=== PATIENT | female | born 1975 | race Caucasian/White ===

== ENCOUNTER 2016-05-17 23:15 | Inpatient (IN) | payer MEDICAID ==
[2016-05-17] MEDS ORDERED: NORMAL SALINE 1000 ML 2,000 ML IV PRN (23:25)
--- NOTE | 2016-05-17 23:31 | ER Document Report ---
ED GI/ - General Stated Complaint: AT HOME DELIVERY,VAGINAL BLEEDING Time seen by provider: 23:31 Mode of Arrival: Medic Information source: Patient - HPI Patient complains to provider of: Abdominal pain, Vaginal bleeding Onset: Just prior to arrival Timing/Duration: Sudden Quality of pain: Achy, Cramping Severity at maximum: Severe Severity in ED: Severe Location: Pelvis, Vaginal Vaginal bleeding (Compared to normal period): Heavier, Passing clots Exacerbated by: Denies Relieved by: Denies Notes: 05/18/16 00:13 Patient is a 41-year-old female who presents to the emergency room via EMS after home delivery of what she believes to be a full-term , patient did not receive any care, EMS reports they were called out to the home earlier today as patient was having active contractions with abdominal pain, when they were called back this time it was related to delivery of an unresponsive, cyanotic, with no pulse, on evaluation they noted a large amount of blood loss from the mother, and a possible partial placental delivery , mother reports this is her sixth and she has 5 living children at home, mother does report that her water broke yesterday evening around 5 PM - Related Data Allergies/Adverse Reactions: No Known Allergies Allergy (Unverified 05/18/16 00:03) Past Medical History - General Information source: Patient, Emergency Med Personnel - Social History Smoking Status: Unknown if Ever Smoked Family History: Reviewed & Not Pertinent Review of Systems - Review of Systems Constitutional: No symptoms reported EENT: No symptoms reported Cardiovascular: No symptoms reported Respiratory: No symptoms reported Gastrointestinal: See HPI Genitourinary: No symptoms reported Female Genitourinary: See HPI Musculoskeletal: No symptoms reported Skin: No symptoms reported Hematologic/Lymphatic: No symptoms reported Neurological/Psychological: No symptoms reported -: Yes All other systems reviewed and negative Physical Exam - Vital signs Vitals: Pulse Ox 88 L 05/17/16 23:17 Interpretation: Hypotensive, Tachycardic - General General appearance: Alert In distress: Mild - HEENT Head: Normocephalic, Atraumatic Eyes: Normal Conjunctiva: Normal Extraocular movements intact: Yes Eyelashes: Normal Pupils: PERRL Mucous membranes: Moist - Respiratory Respiratory status: No respiratory distress Chest status: Nontender Breath sounds: Normal Chest palpation: Normal - Cardiovascular Rhythm: Regular, Tachycardia - Abdominal Tenderness: Tender - Tender to palpate in the suprapubic region, uterine fundus is palpable, firm, tender - Genitourinary Vaginal bleeding: Moderate - Back Back: Normal - Extremities General upper extremity: Normal inspection General lower extremity: Normal inspection - Neurological Neuro grossly intact: Yes Cognition: Normal Orientation: AAOx4 Maryann Coma Scale Eye Opening: Spontaneous Maryann Coma Scale Verbal: Oriented [place] Coma Scale Motor: Obeys Commands Maryann Coma Scale Total: 15 - Psychological Associated symptoms: Normal affect - Skin Skin Temperature: Cool Skin Moisture: Dry Skin Color: Pale Course - Re-evaluation Re-evalutation: 05/18/16 00:18 Patient arrived slightly hypotensive and tachycardic, otherwise alert, IV fluids were immediately administered, patient was placed on a monitor and stabilized in the emergency room and transferred to L&D for further evaluation and treatment by the [employer] WORKER, Dr. Brock Garcia, who accepts patient for admission - Vital Signs Vital signs: Temp Pulse Resp BP Pulse Ox 31 H 131/82 H 100 05/17/16 23:28 05/17/16 23:28 05/17/16 23:22 - Laboratory Result Diagrams: 05/17/16 23:25 05/17/16 23:25 Laboratory results interpreted by me: 05/17/16 05/17/16 23:25 23:25 WBC 20.9 H RBC 3.04 L Hgb 8.3 L Hct 26.4 L MCHC 31.6 L RDW 18.1 H Seg Neuts % (Manual) 81 H Lymphocytes % (Manual) 10 L Abs Neuts (Manual) 17.8 H Sodium 135.8 L Chloride 110 H Carbon Dioxide 11 L Glucose 201 H Calcium 7.6 L Total Protein 4.7 L Albumin 2.4 L Critical Care Note - Critical Care Note Total time excluding time spent on procedures (mins): 40 Comments: Patient arrives via EMS with hemorrhage, hypotensive, tachycardic, pale Discharge - Discharge Clinical Impression: Hypotension syndrome in mother, hemorrhage Qualifiers: hemorrhage type: unspecified Qualified Code(s): O72.1 - Other immediate hemorrhage Condition: Serious Disposition: ADMITTED INPATIENT Admitting Provider: [facility] Admitted: Labor and Delivery
[2016-05-17] MEDS ORDERED: OXYTOCIN/NORMAL SALINE 20 UNIT/1,000 ML RTUINJ ONE (23:44)
[2016-05-17 23:55] LABS: HEMATOCRIT 26.4 % (36.0-47.0); HEMOGLOBIN 8.3 g/dL (12.0-15.5); HGB HCT DIFFERENCE -1.5; MEAN CORPUSCULAR HEMOGLOBIN 27.3 pg (27.0-33.4); MEAN CORPUSCULAR HGB CONC 31.6 g/dL (32.0-36.0); MEAN CORPUSCULAR VOLUME 87 fl (80-97); RED BLOOD COUNT 3.04 10^6/uL (3.72-5.28); RED CELL DISTRIBUTION WIDTH 18.1 % (11.5-14.0); WHITE BLOOD COUNT 20.9 10^3/uL (4.0-10.5)
[2016-05-17] MEDS ORDERED: ZOLPIDEM TARTRATE 5 MG TABLET PO PRN (23:55)
[2016-05-17] MEDS ORDERED: PROMETHAZINE HCL INJ 25 MG/1 ML VIAL IV PRN (23:55)
[2016-05-17] MEDS ORDERED: OXYTOCIN/NORMAL SALINE 1,000 ML IV PRN (23:55)
[2016-05-17] MEDS ORDERED: DIBUCAINE 1% OINTMENT 28 GM TP PRN (23:55)
[2016-05-17] MEDS ORDERED: ACETAMINOPHEN WITH CODEINE #3 TABLET PO PRN ×2 (23:55)
[2016-05-17] MEDS ORDERED: DIPHENHYDRAMINE HCL 25 MG CAPSULE PO PRN (23:55)
[2016-05-17] MEDS ORDERED: DIPH/PERTUSS(ACELL)/TETANUS VAC/PF 0.5 ML SYR (>=10YO) IM PRN (23:55)
[2016-05-17] MEDS ORDERED: GLYCERIN/WITCH HAZEL LEAF 1 EACH MED..PAD TP PRN (23:55)
[2016-05-17] MEDS ORDERED: MAGNESIUM HYDROXIDE SUSP 30 ML UDCUP PO PRN (23:55)
[2016-05-17] MEDS ORDERED: ACETAMINOPHEN 650 MG SUPP.RECT PR PRN (23:55)
[2016-05-17] MEDS ORDERED: NA PHOS,M-B/NA PHOS,DI-BA (ADULT) 133 ML ENEMA PR PRN (23:55)
[2016-05-17] MEDS ORDERED: PROMETHAZINE HCL 25 MG SUPP.RECT PR PRN (23:55)
[2016-05-17] MEDS ORDERED: MEASLES,MUMPS&RUBELLA VACC/PF 0.5 ML VIAL SUBCUT PRN (23:55)
[2016-05-17] MEDS ORDERED: PSEUDOEPHEDRINE HCL 30 MG TABLET PO PRN (23:55)
[2016-05-17] MEDS ORDERED: PROMETHAZINE HCL 25 MG TABLET PO PRN (23:55)
[2016-05-17] MEDS ORDERED: BENZOCAINE/MENTHOL AEROSOL SPRAY 56 ML TOP PRN (23:55)
[2016-05-17 23:58] LABS: ALANINE AMINOTRANSFERASE 22 U/L (9-52); ALBUMIN 2.4 g/dL (3.5-5.0); ALKALINE PHOSPHATASE 99 U/L (38-126); ANION GAP 15 (5-19); ASPARTATE AMINO TRANSFERASE 19 U/L (14-36); BILIRUBIN,DIRECT 0.1 mg/dL (0.0-0.4); BILIRUBIN,TOTAL 0.5 mg/dL (0.2-1.3); BLOOD UREA NITROGEN 10 mg/dL (7-20); CALCIUM 7.6 mg/dL (8.4-10.2); CARBON DIOXIDE 11 mmol/L (22-30); CHLORIDE 110 mmol/L (98-107); CREATININE RESULT 0.69 mg/dL (0.52-1.25); GLUCOSE 201 mg/dL (75-110); POTASSIUM 4.3 mmol/L (3.6-5.0); SODIUM 135.8 mmol/L (137-145); TOTAL PROTEIN 4.7 g/dL (6.3-8.2)
[2016-05-18] MEDS ORDERED: ACETAMINOPHEN WITH CODEINE #3 TABLET ONE (00:06)
[2016-05-18 00:07] VITALS: BP 131/82
[2016-05-18] MEDS ORDERED: IBUPROFEN 800 MG TABLET ONE (00:07)
[2016-05-18 00:10] LABS: BAND NEUTROPHILS % (MANUAL) 4 % (3-5); BASOPHILS % (MANUAL) 0 % (0-2); EOSINOPHILS % (MANUAL) 0 % (0-6); LYMPHOCYTES % (MANUAL) 10 % (13-45); TOTAL CELLS COUNTED 100
[2016-05-18 00:11] LABS: ANISOCYTOSIS 1+; OVALOCYTES SLIGHT; POLYCHROMASIA SLIGHT; TOXIC GRANULATION SLIGHT
[2016-05-18 00:51] LABS: ADD HIVPANEL? NO; HIV (1 AND 2) ANTIBODY NEGATIVE (NEGATIVE)
[2016-05-18] MEDS ORDERED: IBUPROFEN 800 MG TABLET PO SCH (06:00)
[2016-05-18] MEDS ORDERED: FERROUS SULFATE 325 MG TABLET PO SCH (10:00)
[2016-05-18] MEDS ORDERED: FAMOTIDINE 20 MG TABLET PO SCH (10:00)
[2016-05-18] MEDS ORDERED: SENNOSIDES/DOCUSATE 8.6-50 MG 1 EACH TABLET PO SCH (10:00)
[2016-05-18] MEDS ORDERED: DOCUSATE SODIUM 100 MG CAPSULE PO SCH (10:00)
[2016-05-18] MEDS ORDERED: PRENATAL VITAMIN W-O CA NO5/FE FUMARATE/FA CAPSULE PO SCH (10:00)
--- NOTE | 2016-06-11 16:58 | DISCHARGE SUMMARY E ---
Discharge Summary NAME: JOSE ALBERTO MONROE : 1975 AGE: 41Y ADMITTED: 05/17/2016 DISCHARGED: 05/18/2016 Discharge Diagnosis: Vaginal delivery HOSPITAL COURSE: She had delivered at home with a planned home . Both the baby and placenta delivered at home but the baby delivered stillbirth. This prompted their visit to the ER by squad. She had a small peroneal laceration that she did not want repaired. I recommended she stay until morning to ensure she would not have any hemorrhage or fevers. She declined to stay. Initially she had agreed but her came in and they left AMA, against medical advice. DICTATING PHYSICIAN: MARIA GUADALUPE HUSSEIN M.D. [id number] PHY#: [id number] ID: [id number] JOB#: [id number] ACCT: [id number] cc:MARIA GUADALUPE HUSSEIN M.D. > MTDD
== END 2016-05-18 03:28 | disposition left against medical advice (07) | DRG 774 ==
LOC: ER 23:15 → LR 23:40
PROVIDERS: ADMIT Obstetrics & Gynecology; ATTEND Obstetrics & Gynecology
DX: O72.1 Other immediate postpartum hemorrhage (principal); O13.5 Gestational [pregnancy-induced] hypertension without significant proteinuria, complicating the puerperium
CPT/HCPCS: 36415; 80053; 83036; 85025; 86592; 86701; 86850; 86900; 86901; 94760; 96365; 99291; J2590

== ENCOUNTER 2019-05-05 21:45 | Inpatient (IN) | payer MEDICAID ==
[2019-05-05] MEDS ORDERED: OXYTOCIN 10 UNIT/ML VIAL ONE ×2 (22:11→22:15)
[2019-05-05] MEDS ORDERED: MISOPROSTOL 0.2 MG TABLET ONE (22:12)
[2019-05-05] MEDS ORDERED: OXYTOCIN/NORMAL SALINE 20 UNIT/1,000 ML RTUINJ ONE (22:12)
[2019-05-05] MEDS ORDERED: LIDOCAINE 1% INJ-PF (10 MG/ML) 30 ML SDV ONE (22:12)
[2019-05-05] MEDS ORDERED: PENICILLIN G-K 5 MILLION UNIT VIAL ONE (22:24)
[2019-05-05 22:30] LABS: T.VAGINALIS (WET MOUNT) NO TRICHOMONAS SEEN; WBCS (WET MOUNT) NO WBCS SEEN; YEAST (WET MOUNT) NO YEAST SEEN
[2019-05-05] MEDS ORDERED: RINGERS SOLUTION,LACTATED 1,000 ML IV ONE (22:44)
[2019-05-05] MEDS ORDERED: PENICILLIN G POTASSIUM 5,000,000 UNIT in DEXTROSE 5%-WATER 100 ML IV ONE (22:44)
[2019-05-05 22:58] LABS: ABSOLUTE LYMPHOCYTES (AUTO) 0.8 10^3/uL (0.5-4.7); ABSOLUTE MONOCYTES (AUTO) 0.4 10^3/uL (0.1-1.4); ABSOLUTE NEUT (AUTO) 7.9 10^3/uL (1.7-8.2); BASOPHILS % (AUTO) 0.2 % (0-2); EOSINOPHILS % (AUTO) 0.2 % (0-6); HEMOGLOBIN 11.9 g/dL (12.0-15.5); MEAN CORPUSCULAR HEMOGLOBIN 30.3 pg (27.0-33.4); MEAN CORPUSCULAR HGB CONC 35.1 g/dL (32.0-36.0); MEAN CORPUSCULAR VOLUME 86 fl (80-97); MONOCYTES % (AUTO) 4.7 % (3-13); PLATELET COUNT 190 10^3/uL (150-450); RED BLOOD COUNT 3.95 10^6/uL (3.72-5.28); RED CELL DISTRIBUTION WIDTH 15.6 % (11.5-14.0); SEGMENTED NEUTROPHILS % (AUTO) 85.9 % (42-78); TOTAL CELLS COUNTED % (AUTO) 100 %; WHITE BLOOD COUNT 9.2 10^3/uL (4.0-10.5)
[2019-05-05 23:01] LABS: APPEARANCE,URINE CLEAR; BILIRUBIN,URINE NEGATIVE (NEGATIVE); COLOR,URINE YELLOW; GLUCOSE, URINE NEGATIVE (NEGATIVE); KETONES,URINE TRACE mg/dL (NEGATIVE); LEUKOCYTE ESTERASE,URINE TRACE (NEGATIVE); NITRITE,URINE NEGATIVE (NEGATIVE); PROTEIN,URINE NEGATIVE (NEGATIVE); URINE SPECIFIC GRAVITY 1.024
--- NOTE | 2019-05-05 23:07 | Admission Physical ---
Datetime Report Generated by CPN: 05/05/2019 23:06 CURRENT ADMISSION Chief Complaint: Uterine Contractions Indication for Induction: Not Applicable Admit Impression : Active Labor; Intact Membranes Admit Impression- Other: suspect term Admit Plan: Admit to Unit; Initiate Labor Protocol ALLERGIES Medication Allergies: No Known Allergies (05/18/2016) OBSTETRICAL HISTORY EDC: 05/09/2019 00:00 : 7 Para: 6 Livin Gestational Diabetes: No Rh Sensitization: No Incompetent Cervix: No DONOVAN: No Infertility: No ART Treatment: No Uterine Anomaly: No IUGR: No Hx Previous C/S: No Macrosomia: No Hx Loss/Stillborn: Yes PIH: No Hx : No Placenta Previa/Abruption: Yes Depression/PP Depression: No PTL/PROM: No Post Hemorrhage: No Obstetrical History Comments: G1: 1996 1998 2002 2012 2014 2016 stillborn current SEE RECORDS Alcohol: No Marijuana : No Cocaine: No Other Illicit Drugs: No Cigarettes: Never Smoker. 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 Surgery: No Heart Disease: No Hosp/Surgery: No Autoimmune Disorder: No Anesthetic Complications: No Kidney Disease: No Abnormal Pap Smear: No Neuro/Epilepsy: No Psychiatric Disorders: No Other Medical Diseases: No Hepatitis/Liver Disease: No Significant Family History: No Varicosities/Phlebitis: No Trauma/Violence : No Thyroid Dysfunction: No INFECTIOUS HISTORY Gonorrhea: No Genital Herpes: No Chlamydia: No Tuberculosis: No Syphilis: No Hepatitis: No HIV/AIDS Exposure: No Rash or Viral Illness: No HPV: No PHYSICAL EXAM General: Normal HEENT: Normal Neurologic: Normal Thyroid: Deferred Heart: Normal Lungs: Normal Breast: Deferred Back: Normal Abdomen: Normal Genitourinary Exam: Normal Extremities: Normal DTRs: Normal Pelvic Type: Adequate Vital Signs: Reviewed VAGINAL EXAM Dilatation: 7 Effacement: 80 Station: -2 Contraction Comments: Q 2-3 MEMBRANES Membranes: Intact FETUS A EGA: 39.3 Monitoring: External US FHR- Baseline: 155 Variability: Moderate 6-25bpm Accelerations: 10X10 Decelerations: Variable FHR Category: Category II Presentation: Vertex Admit Comment: 44yo at reportedly 40+1ega by reported LMP of 07/29/2019. She reports that she had 4D US in town that gave her ROBYN 05/09/2019. She has had no care and patient has delivered all her babies at home. Her last delivery 2016 was planned homebirth ( present for delivery who had delivered 2 of other children) and baby was born stillbirth. She reports that she had bleeding and maybe placental abruption (Dr. Garcia note does not mention abruption but does report that patient left AMA). Dr. Garcia note placenta delivered at home (ER note with noted possible high EBL upon EMS arrival and what they thought was retained/partial delivery of placenta). BPs elev upon arrival - PIH labs added. No prental care labs added. US initially ordered but due to active labor US cancelled. PCN ordered for GBS prophy as she is GBS unknown. Urine culture and GBS and WET prep and GC/CT ordered as well. Nursery aware. Hemoglobin A1c ordered. Admit. US reordered since 7cm. AROM with very thick old meconium. FHR decel responded to position changes. Pt now at 2256 decel with slow response with position changes but after 4min began to respond and at 6min was 140s again. Reviewed with patient that she would need to have urgent section. If she does not have an epidural she is aware that she will need to have general anesthesia. PLANS FOR LABOR AND DELIVERY Labor and Delivery: Plan Pain Management: None Feeding Preference: Formula Circumcision: No INFORMED CONSENT Informed Consent Obtained: Vaginal Delivery; Risks, Benefits and Alternatives Discussed Signature: with User ID: [email or web address]
[2019-05-05 23:26] LABS: ALBUMIN 3.8 g/dL (3.5-5.0); ALKALINE PHOSPHATASE 204 U/L (38-126); ANION GAP 12 (5-19); ASPARTATE AMINO TRANSFERASE 20 U/L (14-36); BILIRUBIN,DIRECT 0.4 mg/dL (0.0-0.4); BILIRUBIN,TOTAL 0.6 mg/dL (0.2-1.3); BLOOD UREA NITROGEN 10 mg/dL (7-20); CALCIUM 8.8 mg/dL (8.4-10.2); CARBON DIOXIDE 17 mmol/L (22-30); CHLORIDE 106 mmol/L (98-107); GLUCOSE 113 mg/dL (75-110); TOTAL PROTEIN 7.2 g/dL (6.3-8.2); URIC ACID 5.8 mg/dL (2.5-7.0)
[2019-05-05 23:27] LABS: URINE AMPHETAMINES SCREEN NEGATIVE; URINE BARBITURATES SCREEN NEGATIVE; URINE BENZODIAZEPINES SCREEN NEGATIVE; URINE COCAINE SCREEN NEGATIVE; URINE MARIJUANA (THC) SCREEN NEGATIVE; URINE METHADONE SCREEN NEGATIVE; URINE PHENCYCLIDINE SCREEN NEGATIVE
[2019-05-05 23:31] LABS: UR PRO/CREAT RATIO RESULT 0.1 mg/mg (0.0-0.2); URINE CREATININE 138.7 mg/dL (15-278); URINE PROTEIN 7.4 mg/dL (<12)
[2019-05-05] MEDS: RINGERS SOLUTION,LACTATED 1,000 ML IV PRN (23:37)
[2019-05-05 23:55] LABS: CHLAM PCR NOT DETECTED (NOT DETECT)
--- NOTE | 2019-05-06 00:01 | RADIOLOGY REPORT (SQ) ---
US PELVIS EXAM DATE: 05/05/2019 10:52 PM CDT HISTORY: presentation. COMPARISON: None. TECHNIQUE: Grayscale, color Doppler, and spectral Doppler ultrasound images of the pelvis were obtained. FINDINGS: There is a single intrauterine gestation with heart rate 168 bpm. The fetus is in vertex presentation and the placenta is anterior. Estimated gestational age is 38 weeks 4 days. ROBYN is 05/15/2019. Estimated weight is 7 lbs. 9 oz. ROXANNA cannot be evaluated due to limited visualization of the quadrants. IMPRESSION: Single live IUP as above.
[2019-05-06] MEDS ORDERED: OXYTOCIN/NORMAL SALINE 20 UNIT/1,000 ML RTUINJ IV PRN ×2 (00:12→03:15)
[2019-05-06] MEDS ORDERED: CITRIC ACID/SODIUM CITRATE ORAL SOLN 15 ML UDCUP ONE (01:57)
[2019-05-06] MEDS ORDERED: CEFAZOLIN INJ 1 GM VIAL ONE (01:57)
[2019-05-06] MEDS ORDERED: PROPOFOL INJ 200 MG/20 ML VIAL IV ONE (02:22)
[2019-05-06] MEDS ORDERED: OXYTOCIN 10 UNIT/ML VIAL ONE (02:23)
[2019-05-06] MEDS ORDERED: FENTANYL CITRATE INJ/PF 100 MCG/2 ML AMPUL ONE ×3 (02:23→04:30)
[2019-05-06] MEDS ORDERED: MIDAZOLAM 2 MG/2 ML INJ ONE (02:23)
[2019-05-06] MEDS ORDERED: PENICILLIN G POTASSIUM 2,500,000 UNIT in DEXTROSE 5%-WATER 50 ML IV SCH (02:45)
[2019-05-06] MEDS ORDERED: ONDANSETRON HCL INJ/PF 4 MG/2 ML SDV ONE (02:45)
[2019-05-06] MEDS ORDERED: OXYTOCIN/NORMAL SALINE 20 UNIT/1,000 ML RTUINJ ONE (02:48)
[2019-05-06] MEDS ORDERED: CEFAZOLIN SODIUM 3 GM in DEXTROSE 5%-WATER 50 ML IV PRN (03:00)
[2019-05-06] MEDS ORDERED: ACETAMINOPHEN 1,000 MG/100 ML RTUPB IV PRN (03:15)
[2019-05-06] MEDS ORDERED: OXYCODONE-ACETAMINOPHEN 5-325 MG TABLET PO PRN (03:15)
[2019-05-06] MEDS ORDERED: HYDROMORPHONE HCL INJ/PF 2 MG/ML AMPULE IV PRN (03:15)
[2019-05-06] MEDS ORDERED: ACETAMINOPHEN 325 MG TABLET PO PRN (03:15)
[2019-05-06] MEDS ORDERED: PROMETHAZINE HCL INJ 25 MG/1 ML VIAL IV PRN (03:15)
[2019-05-06] MEDS ORDERED: MEASLES,MUMPS&RUBELLA VACC/PF 0.5 ML VIAL SUBCUT PRN (03:15)
[2019-05-06] MEDS ORDERED: DIPH/PERTUSS(ACELL)/TETANUS VAC/PF 0.5 ML SYR (>=10YO) IM PRN (03:15)
[2019-05-06] MEDS ORDERED: SIMETHICONE 80 MG TAB.CHEW PO PRN (03:15)
--- NOTE | 2019-05-06 03:15 | Operative Report ---
Operative Report DATE OF SURGERY: 05/06/19 PREOPERATIVE DIAGNOSIS: 40+2ega, , Nonreassuring with terminal bradycard ia in 50-60s, History of stillbirth, No Care POSTOPERATIVE DIAGNOSIS: DMITRIY - Partial Abruption OPERATION: Primary Section SURGEON: ISAC PULIDO ANESTHESIA: GA TISSUE REMOVED OR ALTERED: placenta and cord sent to pathology COMPLICATIONS: partial placenta abruption likely composing at least 600ml of QBL ESTIMATED BLOOD LOSS: 1500 QUANTITATIVE BLOOD LOSS: 1,850 INTRAOPERATIVE FINDINGS: VFI delivered at 0227, Weight 2890g (6#6oz), Apgars 6/9. Approximately 600ml of clot delivered with baby consistent with partial abruption, old meconium staining on inside of uterus and amniotic membranes. Cytotec 1000mcg placed per rectum. Suspect EBL and QBL skewed due to presence of abruption with significant clot and amnioinfusion PROCEDURE: Anesthesia provider: [Arnel Baeza CRNA, X[facility] EDWARDS] Urine output: [100ml] IV fluids: [1000ml] Indications: [44yo at 40+2ega admitted due to active labor. No care. All care labs done. US done for evaluation of weight and dating. Deceleration occured after admission and then return to baseline and improved heart rate tracing for approximately 2 hours (after intrauterine resuscitation and amnioinfusion with IUPC) then patient began having vaginal bleeding and no cervical change now 4 hours after admission. Reviewed need for section due to Arrest of Dilation and patient verbalized understanding. However, just after this discussion FHR decreased abruptly to 50-60s and did not improve and emergent section reviewed and all persons notified. The risks, benefits, alternatives were reviewed. Upon arrival into the OR the baby had recovered to 100's and emergent section under general anesthesia was performed. The patient declines tubal sterilization.] Procedure: The patient was taken to the operating room where general anesthesia was obtained after she was prepped and draped in the normal sterile fashion and placed in the dorsal supine position with a leftward tilt. A Pfannenstiel skin incision was then made and carried through to the underlying layers of the fascia with the scalpel. The fascia was incised in the midline and the incision extended laterally with the Fagan scissors. The superior aspect of the fascial incision was then grasped with Ramila clamps elevated and the underlying rectus muscles dissected off [bluntly]. Attention was then turned to the inferior aspect of the fascial incision which in a similar fashion was grasped, tented up with Ramila clamps, and the rectus muscles dissected off [bluntly]. The rectus muscles were then in the midline and the peritoneum at the amount identified and entered [bluntly]. The peritoneal incision was then extended superiorly and inferiorly with good visualization of the bladder. The bladder blade was inserted and the lower uterine segment incised in a transverse fashion with the scalpel. The uterine incision was then extended bluntly. Immediate delivery of large amount of clot consistent with abruption. The bladder blade was removed and the 's head was delivered from cephalic presentation atraumatically. The nose and mouth were suctioned and the cord doubly clamped and cut. And the infant was handed off to waiting pediatricians. The placenta was then delivered spontaneously and the uterus exteriorized and cleared of all clots and debris. The uterine incision was then repaired with 1- 0 Vicryl in a running locked fashion. A second layer of the same suture was used to obtain hemostasis via imbrication of the initial layer. The bladder flap was then repaired with 3-0 chromic in a running fashion. The uterus was returned to the patient's abdomen and Surgicel was placed overlying the uterine incision to assist with hemostasis. The gutters were cleared of all clots and debris. All operative sites were noted to be hemostatic. The fascia was reapproximated with 0 Vicryl in a running fashion from each lateral edge to the midline. The skin was closed with 3-0 Monocryl in a running subcuticular fashion with overlying Exofin for additional dressing as well as wound closure. The patient tolerated the procedure well. Sponge lap needle and instrument counts are correct times 2. 3 g of Ancef were given prior to skin incision. The patient was taken to the recovery area awake and in stable condition. Cytotec 1000mcg placed per rectum for uterine tone.
--- NOTE | 2019-05-06 03:37 | Warning Signs in Babies ---
VOD Warning Signs Datetime Report Generated by [facility]: 05/06/2019 03:36 VOD#608 -Warning Signs in Babies: Needs to be viewed. (05/06/2019 03:15:Sarah De La Rosa RN)
[2019-05-06] MEDS ORDERED: MORPHINE SULFATE 10 MG/ML INJ ONE ×3 (03:44→05:14)
[2019-05-06] MEDS ORDERED: MISOPROSTOL 0.2 MG TABLET PR ONE (04:08)
[2019-05-06] MEDS ORDERED: MEPERIDINE HCL/PF INJ 25 MG/1 ML DISP.SYRIN ONE (04:19)
[2019-05-06] MEDS ORDERED: ACETAMINOPHEN 1,000 MG/100 ML RTUPB IV ONE (04:20)
[2019-05-06] MEDS ORDERED: AMPICILLIN SOD/SULBACTAM 3 GM VIAL IV PRN (05:01)
[2019-05-06 05:17] LABS: HEMATOCRIT 26.3 % (36.0-47.0); MEAN CORPUSCULAR HGB CONC 34.6 g/dL (32.0-36.0); MEAN CORPUSCULAR VOLUME 87 fl (80-97); PLATELET COUNT 208 10^3/uL (150-450); RED BLOOD COUNT 3.03 10^6/uL (3.72-5.28); RED CELL DISTRIBUTION WIDTH 15.7 % (11.5-14.0); WHITE BLOOD COUNT 13.2 10^3/uL (4.0-10.5)
[2019-05-06 05:18] LABS: HEMOGLOBIN 9.1 g/dL (12.0-15.5)
[2019-05-06] MEDS: KETOROLAC TROMETHAMINE INJ/PF 30 MG/1 ML SDV IV SCH ×3 (05:57→21:27)
[2019-05-06] MEDS: AMPICILLIN SODIUM/SULBACTAM NA 3 GM in NORMAL SALINE 100 ML IV SCH ×3 (05:58→17:49)
[2019-05-06] MEDS ORDERED: AMPICILLIN SOD/SULBACTAM 3 GM VIAL IV SCH (06:00)
[2019-05-06] MEDS ORDERED: SUCCINYLCHOLINE CHLORIDE INJ 200 MG/10 ML VIAL ONE (07:50)
[2019-05-06] MEDS ORDERED: ROCURONIUM BROMIDE INJ 50 MG/5 ML VIAL IV ONE (07:50)
[2019-05-06] MEDS: PRENATAL VITAMIN W DHA CAPSULE PO SCH (09:15)
[2019-05-06] MEDS: OXYCODONE-ACETAMINOPHEN 5-325 MG TABLET PO PRN ×2 (09:15→20:31)
[2019-05-06] MEDS: DOCUSATE SODIUM 100 MG CAPSULE PO SCH ×2 (09:15→17:49)
[2019-05-06 09:55] LABS: ABSOLUTE LYMPHOCYTES (AUTO) 1.1 10^3/uL (0.5-4.7); ABSOLUTE MONOCYTES (AUTO) 0.8 10^3/uL (0.1-1.4); ABSOLUTE NEUT (AUTO) 11.9 10^3/uL (1.7-8.2); BASOPHILS % (AUTO) 0.2 % (0-2); HEMATOCRIT 25.4 % (36.0-47.0); HEMOGLOBIN 8.6 g/dL (12.0-15.5); LYMPHOCYTES % (AUTO) 8.3 % (13-45); MEAN CORPUSCULAR HEMOGLOBIN 29.2 pg (27.0-33.4); MEAN CORPUSCULAR HGB CONC 33.6 g/dL (32.0-36.0); MEAN CORPUSCULAR VOLUME 87 fl (80-97); MONOCYTES % (AUTO) 5.6 % (3-13); PLATELET COUNT 218 10^3/uL (150-450); RED BLOOD COUNT 2.93 10^6/uL (3.72-5.28); RED CELL DISTRIBUTION WIDTH 15.5 % (11.5-14.0); SEGMENTED NEUTROPHILS % (AUTO) 85.9 % (42-78); TOTAL CELLS COUNTED % (AUTO) 100 %; WHITE BLOOD COUNT 13.8 10^3/uL (4.0-10.5)
[2019-05-06] MEDS ORDERED: TRANEXAMIC ACID INJ/PF 1,000 MG/10 ML SDV ONE (10:25)
[2019-05-06] MEDS ORDERED: CARBOPROST TROMETHAMINE INJ 250 MCG/1 ML AMPULE ONE (10:38)
[2019-05-06] MEDS ORDERED: LOPERAMIDE HCL 2 MG CAPSULE ONE (10:38)
--- NOTE | 2019-05-06 11:03 | PDOC PROGRESS REPORT ---
Subjective-OB Progress Note for:: 05/06/19 Subjective: reports bleeding slowing, pain controlled with current meds. dr rodrigez in to see pt for pp bleeding with boggy uterus per RN Physical Exam (OB) Vital Signs: Temp Pulse Resp BP Pulse Ox 98.8 F 95 16 118/62 97 05/06/19 09:38 05/06/19 09:38 05/06/19 09:38 05/06/19 09:38 05/06/19 09:38 Intake & Output 05/05/19 05/06/19 05/07/19 06:59 06:59 06:59 Weight 102.4 kg - Dressing Removed: No Incision: Well Approximated Closure Type: Surgical Glue - Lochia Lochia Amount: Scant < 10 ml - none seen on CNM exam - Abdomen Description: Tender, Soft Hernia Present: No Fundal Description: Firm, Midline Fundal Height: u/u - u/2 - Abdominal Distension: No distension - Extremities Lower extremities: Sunshine's sign - neg Calf: Normal, Nontender Objective-Diagnostic Laboratory: 05/06/19 09:32 05/05/19 22:44 05/05/19 05/05/19 05/05/19 21:55 22:44 22:44 WBC 9.2 RBC 3.95 Hgb 11.9 L Hct 34.0 L MCV 86 MCH 30.3 MCHC 35.1 RDW 15.6 H Plt Count 190 Seg Neutrophils % 85.9 H Sodium Potassium Chloride Carbon Dioxide Anion Gap BUN Creatinine Est GFR ( Amer) Glucose Uric Acid Calcium Total Bilirubin AST Alkaline Phosphatase Total Protein Albumin TSH Urine Color YELLOW Urine Appearance CLEAR Urine pH 6.0 Ur Specific [place] 1.024 Urine Protein NEGATIVE Urine Glucose (UA) NEGATIVE Urine Ketones TRACE H Urine Blood MODERATE H Urine Nitrite NEGATIVE Ur Leukocyte Esterase TRACE H Urine WBC (Auto) 1 Urine RBC (Auto) 1 Blood Type O POSITIVE Antibody Screen NEGATIVE 05/05/19 05/05/19 05/06/19 22:44 22:44 04:59 WBC 13.2 H RBC 3.03 L Hgb 9.1 L D Hct 26.3 L MCV 87 MCH 30.0 MCHC 34.6 RDW 15.7 H Plt Count 208 Seg Neutrophils % Sodium 135.1 L Potassium 4.0 Chloride 106 Carbon Dioxide 17 L Anion Gap 12 BUN 10 Creatinine 0.54 Est GFR ( Amer) > 60 Glucose 113 H Uric Acid 5.8 Calcium 8.8 Total Bilirubin 0.6 AST 20 Alkaline Phosphatase 204 H Total Protein 7.2 Albumin 3.8 TSH 2.01 Urine Color Urine Appearance Urine pH Ur Specific [place] Urine Protein Urine Glucose (UA) Urine Ketones Urine Blood Urine Nitrite Ur Leukocyte Esterase Urine WBC (Auto) Urine RBC (Auto) Blood Type Antibody Screen 05/06/19 09:32 WBC 13.8 H RBC 2.93 L Hgb 8.6 L Hct 25.4 L MCV 87 MCH 29.2 MCHC 33.6 RDW 15.5 H Plt Count 218 Seg Neutrophils % 85.9 H Sodium Potassium Chloride Carbon Dioxide Anion Gap BUN Creatinine Est GFR ( Amer) Glucose Uric Acid Calcium Total Bilirubin AST Alkaline Phosphatase Total Protein Albumin TSH Urine Color Urine Appearance Urine pH Ur Specific [place] Urine Protein Urine Glucose (UA) Urine Ketones Urine Blood Urine Nitrite Ur Leukocyte Esterase Urine WBC (Auto) Urine RBC (Auto) Blood Type Antibody Screen Assessment and Plan(PN) - Assessment and Plan (1) Active labor Is this a current diagnosis for this admission?: Yes (2) History of stillbirth Is this a current diagnosis for this admission?: Yes (3) Meconium in amniotic fluid Is this a current diagnosis for this admission?: Yes (4) No care in current Is this a current diagnosis for this admission?: Yes (5) Non-reassuring electronic monitoring tracing Is this a current diagnosis for this admission?: Yes (6) Placenta abruption, delivered, current hospitalization Is this a current diagnosis for this admission?: Yes (7) hemorrhage Is this a current diagnosis for this admission?: Yes (8) S/P primary low transverse Is this a current diagnosis for this admission?: Yes - Time Spent with Patient Time with patient: Less than 15 minutes Medications reviewed and adjusted accordingly: Yes - Disposition Anticipated Discharge: Home Within: within 48 hours
[2019-05-06] MEDS ORDERED: CARBOPROST TROMETHAMINE INJ 250 MCG/1 ML AMPULE IM ONE (11:30)
[2019-05-06] MEDS ORDERED: LOPERAMIDE HCL 2 MG CAPSULE PO ONE (11:30)
[2019-05-06] MEDS ORDERED: TRANEXAMIC ACID INJ/PF 1,000 MG/10 ML SDV IV ONE (12:00)
[2019-05-06] MEDS ORDERED: LOPERAMIDE HCL 2 MG CAPSULE PO PRN (12:30)
[2019-05-06] MEDS: RINGERS SOLUTION,LACTATED 1,000 ML IV PRN (20:31)
[2019-05-07] MEDS: AMPICILLIN SODIUM/SULBACTAM NA 3 GM in NORMAL SALINE 100 ML IV SCH (00:21)
[2019-05-07] MEDS: IBUPROFEN 800 MG TABLET PO SCH ×3 (05:08→17:34)
[2019-05-07] MEDS: OXYCODONE-ACETAMINOPHEN 5-325 MG TABLET PO PRN ×2 (06:12→20:58)
[2019-05-07 07:24] LABS: MEAN CORPUSCULAR HEMOGLOBIN 29.3 pg (27.0-33.4); MEAN CORPUSCULAR VOLUME 86 fl (80-97); PLATELET COUNT 195 10^3/uL (150-450); RED BLOOD COUNT 2.44 10^6/uL (3.72-5.28); RED CELL DISTRIBUTION WIDTH 15.9 % (11.5-14.0); WHITE BLOOD COUNT 12.8 10^3/uL (4.0-10.5)
[2019-05-07 07:29] LABS: HEMOGLOBIN 7.1 g/dL (12.0-15.5)
[2019-05-07] MEDS ORDERED: NORMAL SALINE 250 ML IV PRN (07:46)
--- NOTE | 2019-05-07 08:54 | PDOC PROGRESS REPORT ---
Subjective-OB Progress Note for:: 05/07/19 Subjective: Sitting up in bed, has been out of bed, not dizzy so she does not want blood, will take IV Iron, bottle feeding, voiding, eating well, passing gas Physical Exam (OB) Vital Signs: Temp Pulse Resp BP Pulse Ox 98.2 F 109 H 16 131/77 H 96 05/07/19 07:34 05/07/19 07:34 05/07/19 07:34 05/07/19 07:34 05/07/19 07:34 Intake & Output 05/06/19 05/07/19 05/08/19 06:59 06:59 06:59 Intake Total 100 2670 Output Total 1480 Balance 100 1190 Weight 102.4 kg - PIH/Pre-Eclampsia Clonus: Negative Headache: Absent Epigastric Pain: No Visual Changes: No - Dressing Removed: - N/A Incision: Well Approximated Closure Type: Surgical Glue - Lochia Lochia Amount: Scant < 10 ml Lochia Color: Rubra/Red - Abdomen Description: Tender, Soft Hernia Present: No Fundal Description: Firm, Midline Fundal Height: u/u - u/2 Objective-Diagnostic Laboratory: 05/07/19 07:08 05/05/19 22:44 05/05/19 05/06/19 05/07/19 22:44 09:32 07:08 WBC 13.8 H 12.8 H RBC 2.93 L 2.44 L Hgb 8.6 L 7.1 L Hct 25.4 L 21.0 L MCV 87 86 MCH 29.2 29.3 MCHC 33.6 34.0 RDW 15.5 H 15.9 H Plt Count 218 195 Seg Neutrophils % 85.9 H Blood Type O POSITIVE Antibody Screen NEGATIVE Assessment and Plan(PN) - Assessment and Plan (1) Active labor Is this a current diagnosis for this admission?: Yes (2) History of stillbirth Is this a current diagnosis for this admission?: Yes (3) Meconium in amniotic fluid Is this a current diagnosis for this admission?: Yes (4) Non-reassuring electronic monitoring tracing Is this a current diagnosis for this admission?: Yes (5) Placenta abruption, delivered, current hospitalization Is this a current diagnosis for this admission?: Yes (6) hemorrhage Qualifiers: hemorrhage type: unspecified Qualified Code(s): O72.1 - Other immediate hemorrhage Is this a current diagnosis for this admission?: Yes (7) S/P primary low transverse Is this a current diagnosis for this admission?: Yes - Time Spent with Patient Time with patient: Less than 15 minutes Medications reviewed and adjusted accordingly: Yes - Disposition Anticipated Discharge: Home Within: within 48 hours
[2019-05-07] MEDS: PRENATAL VITAMIN W DHA CAPSULE PO SCH (09:14)
[2019-05-07] MEDS: DOCUSATE SODIUM 100 MG CAPSULE PO SCH ×2 (09:14→17:34)
[2019-05-07] MEDS ORDERED: IRON SUCROSE COMPLEX INJ/PF 100 MG/5 ML SDV IV ONE (09:30)
[2019-05-07] MEDS ORDERED: MEASLES,MUMPS&RUBELLA VACC/PF 0.5 ML VIAL SUBCUT PRN (10:30)
[2019-05-07] MEDS ORDERED: DIPH/PERTUSS(ACELL)/TETANUS VAC/PF 0.5 ML SYR (>=10YO) IM PRN (10:30)
[2019-05-07 14:36] LABS: HEPATITIS C VIRUS AB <0.1 s/co ratio (0.0-0.9)
[2019-05-07 16:34] LABS: HEPATITS B SURFACE ANTIGEN Negative (Negative)
[2019-05-07] MEDS: FERROUS SULFATE 325 MG TABLET PO SCH (17:34)
[2019-05-08] MEDS: IBUPROFEN 800 MG TABLET PO SCH ×3 (00:51→11:59)
--- NOTE | 2019-05-08 09:02 | PDOC DISCHARGE SUMMARY ---
Impression - Admit/DC Date/PCP Admission Date/Primary Care Provider: 05/05/19 22:18 Discharge Date: 05/08/19 - POD #2, pt doing well, denies h/a or blurred vision w/ ambulation. O+,, Rubella Immune. Bottlefeeding. No PNC w/ this . pt refused blood transfusion and IV iron Post Op. - Additional Information Resuscitation Status: Full Code Discharge Diet: As Tolerated, Regular Discharge Activity: Activity As Tolerated, No Driving, No Lifting Over 10 Pounds, Pelvic Rest Prescriptions: Ferrous Sulfate [Feosol 325 mg Tablet] 325 mg PO BIDPCBS 30 Days #60 tablet Ibuprofen [Motrin 800 mg Tablet] 800 mg PO Q8H #60 tablet Vit/Dha [ Multi + Dha Capsule] 1 cap PO DAILY 90 Days #90 capsule Home Medications: Acetaminophen [Tylenol 325 mg Tablet] 650 mg PO Q4HP PRN tablet 05/08/19 Ferrous Sulfate [Feosol 325 mg Tablet] 325 mg PO BIDPCBS 30 Days #60 tablet 05/08/19 Ibuprofen [Motrin 800 mg Tablet] 800 mg PO Q8H #60 tablet 05/08/19 Vit/Dha [ Multi + Dha Capsule] 1 cap PO DAILY 90 Days #90 capsule 05/08/19 HPI Reason(s) for Admission: Onset of Labor, Ceasarean Section-Primary, Other - placental abruption Procedures: None Intrapartum Procedure(s): : Low Cervical, Transverse Results Laboratory Results: WBC 12.8 10^3/uL (4.0-10.5) H 05/07/19 07:08 RBC 2.44 10^6/uL (3.72-5.28) L 05/07/19 07:08 Hgb 7.1 g/dL (12.0-15.5) L 05/07/19 07:08 Hct 21.0 % (36.0-47.0) L 05/07/19 07:08 MCV 86 fl (80-97) 05/07/19 07:08 MCH 29.3 pg (27.0-33.4) 05/07/19 07:08 MCHC 34.0 g/dL (32.0-36.0) 05/07/19 07:08 RDW 15.9 % (11.5-14.0) H 05/07/19 07:08 Plt Count 195 10^3/uL (150-450) 05/07/19 07:08 Lymph % (Auto) 8.3 % (13-45) L 05/06/19 09:32 [place] % (Auto) 5.6 % (3-13) 05/06/19 09:32 Eos % (Auto) 0.0 % (0-6) 05/06/19 09:32 Baso % (Auto) 0.2 % (0-2) 05/06/19 09:32 Absolute Neuts (auto) 11.9 10^3/uL (1.7-8.2) H 05/06/19 09:32 Absolute Lymphs (auto) 1.1 10^3/uL (0.5-4.7) 05/06/19 09:32 Absolute Monos (auto) 0.8 10^3/uL (0.1-1.4) 05/06/19 09:32 Absolute Eos (auto) 0.0 10^3/uL (0.0-0.6) 05/06/19 09:32 Absolute Basos (auto) 0.0 10^3/uL (0.0-0.2) 05/06/19 09:32 Seg Neutrophils % 85.9 % (42-78) H 05/06/19 09:32 Sodium 135.1 mmol/L (137-145) L 05/05/19 22:44 Potassium 4.0 mmol/L (3.6-5.0) 05/05/19 22:44 Chloride 106 mmol/L (98-107) 05/05/19 22:44 Carbon Dioxide 17 mmol/L (22-30) L 05/05/19 22:44 Anion Gap 12 (5-19) 05/05/19 22:44 BUN 10 mg/dL (7-20) 05/05/19 22:44 Creatinine 0.54 mg/dL (0.52-1.25) 05/05/19 22:44 Est GFR ( Amer) > 60 (>60) 05/05/19 22:44 Est GFR (MDRD) Non-Af > 60 (>60) 05/05/19 22:44 Glucose 113 mg/dL (75-110) H 05/05/19 22:44 Hemoglobin A1c % 5.3 % (4.7-6.0) 05/05/19 22:44 Uric Acid 5.8 mg/dL (2.5-7.0) 05/05/19 22:44 Calcium 8.8 mg/dL (8.4-10.2) 05/05/19 22:44 Total Bilirubin 0.6 mg/dL (0.2-1.3) 05/05/19 22:44 Direct Bilirubin 0.4 mg/dL (0.0-0.4) 05/05/19 22:44 Neonat Total Bilirubin Not Reportable 05/05/19 22:44 Neonat Direct Bilirubin Not Reportable 05/05/19 22:44 Neonat Indirect Bili Not Reportable 05/05/19 22:44 AST 20 U/L (14-36) 05/05/19 22:44 ALT 15 U/L (<35) 05/05/19 22:44 Alkaline Phosphatase 204 U/L (38-126) H 05/05/19 22:44 Lactate Dehydrogenase 174 U/L (120-246) 05/05/19 22:44 Total Protein 7.2 g/dL (6.3-8.2) 05/05/19 22:44 Albumin 3.8 g/dL (3.5-5.0) 05/05/19 22:44 TSH 2.01 uIU/mL (0.47-4.68) 05/05/19 22:44 Urine Color YELLOW 05/05/19 21:55 Urine Appearance CLEAR 05/05/19 21:55 Urine pH 6.0 (5.0-9.0) 05/05/19 21:55 Ur Specific [place] 1.024 05/05/19 21:55 Urine Protein NEGATIVE mg/dL (NEGATIVE) 05/05/19 21:55 Urine Glucose (UA) NEGATIVE mg/dL (NEGATIVE) 05/05/19 21:55 Urine Ketones TRACE mg/dL (NEGATIVE) H 05/05/19 21:55 Urine Blood MODERATE (NEGATIVE) H 05/05/19 21:55 Urine Nitrite NEGATIVE (NEGATIVE) 05/05/19 21:55 Urine Bilirubin NEGATIVE (NEGATIVE) 05/05/19 21:55 Urine Urobilinogen 4.0 mg/dL (<2.0) H 05/05/19 21:55 Ur Leukocyte Esterase TRACE (NEGATIVE) H 05/05/19 21:55 Urine WBC (Auto) 1 /HPF 05/05/19 21:55 Urine RBC (Auto) 1 /HPF 05/05/19 21:55 Squamous Epi Cells Auto 2 /HPF 05/05/19 21:55 Urine Mucus (Auto) OCC /LPF 05/05/19 21:55 Urine Creatinine 138.7 mg/dL (15-278) 05/05/19 21:55 Protein/Creatinin Ratio 0.1 mg/mg (0.0-0.2) 05/05/19 21:55 Urine Total Protein 7.4 mg/dL (<12) 05/05/19 21:55 Urine Ascorbic Acid NEGATIVE (NEGATIVE) 05/05/19 21:55 Trichomonas (Wet Prep) NO TRICHOMONAS SEEN 05/05/19 22:14 Vaginal WBC NO WBCS SEEN 05/05/19 22:14 Vaginal Yeast NO YEAST SEEN 05/05/19 22:14 Urine Opiates Screen NEGATIVE 05/05/19 21:55 Urine Methadone Screen NEGATIVE 05/05/19 21:55 Ur Barbiturates Screen NEGATIVE 05/05/19 21:55 Ur Phencyclidine Scrn NEGATIVE 05/05/19 21:55 Ur Amphetamines Screen NEGATIVE 05/05/19 21:55 U Benzodiazepines Scrn NEGATIVE 05/05/19 21:55 Urine Cocaine Screen NEGATIVE 05/05/19 21:55 U Marijuana (THC) Screen NEGATIVE 05/05/19 21:55 RPR NONREACTIVE (NONREACTIVE) 05/05/19 22:44 Chlamydia DNA (PCR) NOT DETECTED (NOT DETECT) 05/05/19 22:14 Hep Bs Antigen Negative (Negative) 05/05/19 22:44 Hepatitis C (STEPHANIE) <0.1 s/co ratio (0.0-0.9) 05/05/19 22:44 Hep C Verif Com 1 Comment (.) 05/05/19 22:44 HIV 1&2 Antibody NEGATIVE (NEGATIVE) 05/05/19 22:44 N.gonorrhoeae DNA (PCR) NOT DETECTED (NOT DETECT) 05/05/19 22:14 Rubella IgG Antibody 22.70 IU/mL 05/05/19 22:44 Rubella IgG Ab Interp POSITIVE 05/05/19 22:44 VZV IgG Antibody 526 index (Immune >16) 05/05/19 22:44 Blood Type O POSITIVE 05/05/19 22:44 Blood Type Confirm O POSITIVE 05/05/19 22:44 Antibody Screen NEGATIVE 05/05/19 22:44 Crossmatch See Detail 05/05/19 22:44 Impressions: Obstetrics Ultrasound 05/05/19 22:52 IMPRESSION: Single live IUP as above. Plan Health Concerns: iron rich foods Plan of Treatment: d/c to home, f/up with [facility] in one week for incision check
[2019-05-08] MEDS: PRENATAL VITAMIN W DHA CAPSULE PO SCH (09:51)
[2019-05-08] MEDS: FERROUS SULFATE 325 MG TABLET PO SCH (09:51)
[2019-05-08] MEDS: DOCUSATE SODIUM 100 MG CAPSULE PO SCH (09:51)
[2019-05-08 11:40] VITALS: BP 145/90
--- NOTE | 2019-05-09 14:03 | Delivery Summary ---
Del Sum A-C Datetime Report Generated by CPN: 05/09/2019 14:02 DELIVERY PERSONNEL DELIVERY PERSONNEL: [id number] Delivery Doctor:: Yola Spencer MD Anesthesiologist:: Ember Govea MD INSURANCE ACCOUNT EXECUTIVE:: Arnel Baeza CRNA Labor and Delivery Nurse:: Sarah De La Rosa RNsawmill moulder operator Nurse:: Kimmie Montague RN Job Hand:: Sarah De La Rosa RN Neonatal Nurse Practitioner:: ABDOULAYE Brown Nursery Nurse:: Sapphire Centeno RN Nursery Nurse:: Lana Reyez RN Content Development Manager/FAST FOOD ASSISTANT RESTAURANT MANAGER: ST Sheila Content Development Manager/FAST FOOD ASSISTANT RESTAURANT MANAGER: Mirella Thomas ST MATERNAL INFORMATION Delivery Anesthesia: General Medications After Delivery: Pitocin Bolus-Please Comment Maternal Complications: Abruptio Placenta LABOR SUMMARY EDC: 05/09/2019 00:00 No. Babies in Womb: 1 Attempted: No Labor Anesthesia: None LABOR INFORMATION Reason for Induction: Not Applicable Onset of Labor: 05/05/2019 22:22 Oxytocin: Augmentation Group B Beta Strep: unknown Antibiotics # of Doses: 1 Antibiotics Time of Last Dose: 2228 Name of Antibiotic Given: penicillin Steroids Given: None Reason Steroids Not Administered: Not Applicable MEMBRANES Membranes Rupture Method: Artificial Rupture of Membranes: 05/05/2019 22:16 Length of Rupture (hr): 4.18 Amniotic Fluid Color: Heavy Meconium Amniotic Fluid Amount: Moderate Amniotic Fluid Odor: Normal STAGES OF LABOR Stage 3 hr: 0 Stage 3 min: 2 Total Time in Labor hr: 4 Total Time in Labor min: 7 CSECTION DELIVERY Primary Indication: Nonreassuring Status CSection Urgency: Emergency CSection Incidence: Primary Labor: No Labor Elective: Nonelective CSection Incision: Lower Uterine Transverse BABY A INFORMATION Infant Delivery Date/Time: 05/06/2019 02:27 Delivery Date/Time: 05/06/2019 02:27 Method of Delivery: Method of Delivery: Nurse Controlled Delivery: No Born in Route : No : N/A Forceps: N/A Vacuum Extraction: N/A Shoulder Dystocia : No PRESENTATION/POSITION BABY A Presentation: Cephalic Cephalic Presentation: Vertex Vertex Position: Left Occipital Anterior Breech Presentation: N/A PLACENTA INFORMATION BABY A Placenta Delivery Time : 05/06/2019 02:29 Placenta Method of Delivery: Manual Removal Placenta Status: Delivered SCORES BABY A Heart Rate 1 min: >100 bpm Resp Effort 1 min: Slow, Irregular Reflex Irritability 1 min: Grimace Muscle Tone 1 min: Some Flexion of Extremities Color 1 min: Blue/Pale SCORE 1 MIN: 5 Heart Rate 5 min: >100 bpm Resp Effort 5 min: Good Cry Reflex Irritability 5 min: Cough or Sneeze or Pulls Away Muscle Tone 5 min: Active Motion Color 5 min: Body [place], Extremities Blue Resuscitation Effort 5 min: Tactile Stimulation SCORE 5 MIN: 9 INFORMATION BABY A Gestational Age at Delivery: 39.4 Gestational Status: Full Term- 39- 40.6 Weeks Infant Outcome : Liveborn Outcome : Liveborn Infant Condition : Stable Condition : Stable Infant Sex: Female Infant Sex: Female IDENTIFICATION BABY A Verification Date/Time: 05/06/2019 02:49 ID Band Number: [id number] Mother's Name Verified: Yes Infant RN Verifying Infant: Jeannine Montague CHRISTIE Additional Verifying Personnel: Brisa Schulz RN WEIGHT/LENGTH BABY A Birthweight (gm): 2890 Infant Weight (lb): 6 Weight (oz): 6 Length (in): 19.75 Infant Length (cm): 50.17 CORD INFORMATION BABY A No. Cord Vessels: 3 Nuchal Cord : N/A Cord Blood Taken: Yes-For Eval (Mom's Blood Type - or O+) Suction: Mouth; Nose ASSESSMENT BABY A Complications: Multiple Variable Decels; Meconium Physical Findings at Delivery: Within Normal Limits Physical Findings- Other: SAMPLE BOX MAKER in OR. See initial nursery assessement Respirations: Appears Normal Client Resolution Specialist/ALS Called : Yes Infant Care By: Pasha Reyez RN/Twan Pantoja RN Transferred To: Nursery
== END 2019-05-08 14:02 | disposition home or self-care (01) | DRG 786 ==
LOC: LC 21:45 → LR 22:18 → 2N 05-06 05:26
PROVIDERS: ADMIT Student in an Organized Health Care Education/Training Program; ATTEND Student in an Organized Health Care Education/Training Program
PROC: 10D00Z1 Extraction of Products of Conception, Low, Open Approach (ICD-10-PCS; principal; 2019-05-06)
PROC: 3E0234Z Introduction of Serum, Toxoid and Vaccine into Muscle, Percutaneous Approach (ICD-10-PCS; 2019-05-06)
DX: O48.0 Post-term pregnancy (principal); O45.93 Premature separation of placenta, unspecified, third trimester; O72.1 Other immediate postpartum hemorrhage; O76 Abnormality in fetal heart rate and rhythm complicating labor and delivery; O77.0 Labor and delivery complicated by meconium in amniotic fluid; Z23 Encounter for immunization; Z3A.40 40 weeks gestation of pregnancy; Z37.0 Single live birth
CPT/HCPCS: 1961; 36415; 76815; 80053; 80307; 81001; 82570; 83036; 83615; 84156; 84443; 84550; 85025; 85027; 86592; 86701; 86762; 86787; 86803; 86804; 86850; 86900; 86901; 86920; 87077; 87081; 87086; 87210; 87340; 87491; 87591; 88307; 94760; 94799; C1758; J0131; J0295; J0330; J0690; J1885; J2175; J2250; J2270; J2405; J2540; J2590; J2704; J3010; J3490; J7050; J7060; J7120